=== PATIENT | female | born 1990 | race Caucasian/White ===

== ENCOUNTER 2024-06-05 04:46 | Day surgery (SDC) | payer BC ==
[2024-06-01 13:17] VITALS: BMI 29.2
[2024-06-05 13:28] VITALS: RESP 16
[2024-06-05 14:29] VITALS: BP 106/52; PULSE 55; TEMP 98.2
== END 2024-06-05 14:28 | disposition home or self-care (01) ==
LOC: JASU-ENDO 04:46
PROVIDERS: ATTEND Internal Medicine Gastroenterology
PROC: 0DBL8ZX Excision of Transverse Colon, Via Natural or Artificial Opening Endoscopic, Diagnostic (ICD-10-PCS; 2024-06-05)
PROC: 0DBP8ZX Excision of Rectum, Via Natural or Artificial Opening Endoscopic, Diagnostic (ICD-10-PCS; 2024-06-05)
PROC: 0DBF8ZX Excision of Right Large Intestine, Via Natural or Artificial Opening Endoscopic, Diagnostic (ICD-10-PCS; 2024-06-05)
PROC: 0DBG8ZX Excision of Left Large Intestine, Via Natural or Artificial Opening Endoscopic, Diagnostic (ICD-10-PCS; principal; 2024-06-05 13:44)
DX: K64.1 Second degree hemorrhoids (principal)
CPT/HCPCS: 81025; 88305-TC